=== PATIENT | female | born 1980 ===

== ENCOUNTER 2017-11-18 13:03 | Emergency (ER) | payer OTHER ==
[~2017-11-18] VITALS: Ht 157.5 cm; Wt 77.1 kg
[2017-11-18] MEDS ORDERED: PNEU16DI2 (13:39)
[2017-11-18] MEDS ORDERED: ATABEX EC CAPL1 EACH (13:39)
== END 2017-11-18 16:50 | disposition home or self-care (01) ==
LOC: ER 13:03
DX: O20.0 Threatened abortion (principal); Z34.81 Encounter for supervision of other normal pregnancy, first trimester

== ENCOUNTER 2018-06-06 10:58 | Outpatient (CLI) | payer OTHER ==
[~2018-06-06 10:58] MED LIST: ATABEX EC CAPL1 EACH; PNEU16DI2
== END 2018-06-06 13:38 | disposition home or self-care (01) ==
LOC: NST 10:58
DX: Z34.03 Encounter for supervision of normal first pregnancy, third trimester (principal)

== ENCOUNTER 2018-06-21 05:23 | Inpatient (IN) | payer OTHER ==
[~2018-06-21] VITALS: Ht 157.5 cm; Wt 3.2 kg
== END 2018-06-24 17:24 | disposition home or self-care (01) | DRG 788 ==
LOC: LDR 05:23 → SURG-SUITE 19:46
PROVIDERS: ADMIT Obstetrics & Gynecology
PROC: 3E0P7VZ Introduction of Hormone into Female Reproductive, Via Natural or Artificial Opening (ICD-10-PCS; 2018-06-21)
PROC: 3E033VJ Introduction of Other Hormone into Peripheral Vein, Percutaneous Approach (ICD-10-PCS; 2018-06-21)
PROC: 4A1HXCZ Monitoring of Products of Conception, Cardiac Rate, External Approach (ICD-10-PCS; 2018-06-21)
PROC: 10D00Z1 Extraction of Products of Conception, Low, Open Approach (ICD-10-PCS; principal; 2018-06-21 17:15)
DX: O62.1 Secondary uterine inertia (principal); Z3A.39 39 weeks gestation of pregnancy; Z37.0 Single live birth